=== PATIENT | female | born 1950 | race Caucasian/White ===

== ENCOUNTER → 2019-03-11 | Outpatient (CLI) | payer BC ==
--- NOTE | 2019-03-12 07:28 | MM ---
Reason for exam: follow-up at short interval from prior study. Last mammogram was performed 5 years and 6 months ago. History: Patient is postmenopausal. Family history of breast cancer in mother at age 76 and breast cancer in maternal aunt. Physical Findings: Nurse did not find any significant physical abnormalities on exam. MG 3D Diag Mammo W/Cad LT Spot compression CC, spot compression MLO, and LM view(s) were taken of the left breast. Prior study comparison: September 03, 2013, bilateral MG screening mammo w CAD. July 16, 2011, bilateral digital screening mammo w/CAD. The breast tissue is heterogeneously dense. This may lower the sensitivity of mammography. There is a left lower outer quadrant mass at middle depth that has increased in density. Ultrasound will be performed. These results were verbally communicated with the patient and result sheet given to the patient on 03/11/19. ASSESSMENT: Incomplete: need additional imaging evaluation, BI-RAD 0 RECOMMENDATION: Ultrasound of the left breast.
--- NOTE | 2019-03-12 07:29 | USB ---
Reason for exam: additional evaluation requested from abnormal screening. History: Patient is postmenopausal. Family history of breast cancer in mother at age 76 and breast cancer in maternal aunt. US Breast LT Left complete breast ultrasound includes all four quadrants, the retroareolar region and axilla. Finding demonstrates a 7 x 3 x 6mm cystic lesion at 4 o'clock, corresponds with mammographic finding. Scattered areas of dense tissue. These results were verbally communicated with the patient and result sheet given to the patient on 03/11/19. ASSESSMENT: Benign, BI-RAD 2 RECOMMENDATION: Routine screening mammogram of both breasts in 1 year.
== END | disposition home or self-care (01) ==
LOC: RADMAMWWP 13:19
PROVIDERS: ATTEND Obstetrics & Gynecology
DX: R92.8 Other abnormal and inconclusive findings on diagnostic imaging of breast (principal)
CPT/HCPCS: 77061; 77065

== ENCOUNTER → 2019-03-26 | Outpatient (CLI) | payer BC, MEDICARE ==
--- NOTE | 2019-03-26 15:29 | BD ---
EXAMINATION TYPE: Axial Bone Density DATE OF EXAM: 03/26/2019 COMPARISON: 02/21/2016 CLINICAL HISTORY: M [age] Height: 63.5 IN Weight: 127 LBS FRAX RISK QUESTIONS: Family History (Parent hip fracture): YES MOTHER History of Fracture in Adulthood: LT FOOT AGE 62 RISK FACTORS HISTORY OF: Surgery to Hip(BRISEIDA): SEPTEMBER 2015 Family History of Osteoporosis: YES MOTHER, SISTER, AND (2) BROTHERS Active: YES Postmenopausal woman: AGE 54 MEDICATIONS: Osteoporosis Medications: NOT NOW Which medication: Fosamax How Long: TOOK FOR 2 YEARS Additional Medications: CALCIUM, VIT D, GLUSOMINE SULPHATE, MAGNESIUM, SELENIUM, B COMPLEX, MULTI VIT , EXAM MEASUREMENTS: Bone mineral densitometry was performed using the [employer] System. Bone mineral density as measured about the Lumbar spine is: ----- L1-L4(G/cm2): 1.011 T Score Values are as follows: ----- L2: -1.7 ----- L3: -1.1 ----- L4: -1.2 ----- L1-L4: -1.4 Bone mineral density has: Increased 5.6% since study of: 02/21/2016 PT HAD BRISEIDA HIP REPLACEMENTS 09/2015 Bone mineral density about the L Wrist (g/cm2): 0.553 T Score values are as follows: -----Dist. R+U: -3.6 -----Prox. R+U: -1.0 -----Radius total: -2.0 Bone mineral density BASELINE IMPRESSION: Osteoporosis (T Score less than -2.5) with regards to the radius. There is increased fracture risk and therapy is usually indicated based on age. Re-Screen 1-2 years. NOTE: T-SCORE=SD OF THE YOUNG ADULT MEAN.
== END | disposition home or self-care (01) ==
LOC: RADBDWWP 12:21
PROVIDERS: ATTEND Obstetrics & Gynecology
DX: M81.0 Age-related osteoporosis without current pathological fracture (principal)
CPT/HCPCS: 77080

== ENCOUNTER → 2024-04-07 | Outpatient (CLI) | payer MEDICARE ==
--- NOTE | 2024-04-07 15:07 | MM ---
Reason for Exam: Screening (asymptomatic). Last mammogram was performed 10 year(s) and 7 month(s) ago. Patient History: Menarche at age 11. First Full-Term at age 24. Postmenopausal. Maternal aunt had breast cancer. Mother had breast cancer, age 76. Risk Values: Marilee 5 year model risk: 3.5%. NCI Lifetime model risk: 7.4%. Prior Study Comparison: 07/16/2011 Bilateral Screening Mammogram, [facility]. 09/03/2013 Bilateral Screening Mammogram, [facility]. 03/11/2019 Left Diagnostic Mammogram, [facility]. Tissue Density: The breasts are heterogeneously dense, which may obscure small masses. Findings: Analyzed By CAD. Right breast: There is no suspicious group of microcalcifications or new suspicious mass. Left breast: There is no suspicious group of microcalcifications or new suspicious mass. Benign-appearing calcifications left breast. Overall Assessment: Benign, BI-RAD 2 Management: Screening Mammogram of both breasts in [address] [facility] will attempt to contact patient to return for supplemental views and ultrasound if indicated. Patient should continue monthly self-breast exams. A clinical breast exam by your physician is recommended on an annual basis. This exam should not preclude additional follow-up of suspicious palpable abnormalities. Note on Marilee scores and lifetime risk: 1. A Marilee score greater than 3% is considered moderate risk. If this is the case, consider specialist referral to assess eligibility for a risk reducing agent. 2. If overall lifetime risk for the development of breast cancer is 20% or higher, the patient may qualify for future screening with alternating mammogram and breast MRI. [facility], , 04/07/2024 3:04 PM. Electronically signed and approved by: Jaguar Austin DO
--- NOTE | 2024-04-07 16:27 | BD ---
EXAMINATION TYPE: Axial Bone Density DATE OF EXAM: 04/07/2024 CLINICAL HISTORY: 74 years old Female. ICD-10 CODE: Z78.0 POST MENOPAUSAL , Additional History: Height: 63 in Weight: 120 lbs FRAX RISK QUESTIONS: Family History (Parent hip fracture): yes mother History of Fracture in Adulthood: lt foot fx age 50 RISK FACTORS HISTORY OF: Surgery to Hip(right/left): jayson 2015 MEDICATIONS: Osteoporosis Medications: not now Which medication: Fosamax How Lon years EXAM MEASUREMENTS: Bone mineral densitometry was performed using the [employer] System. Bone mineral density as measured about the Lumbar spine is: ----- L1-L4(G/cm2): 1.009 T Score Values are as follows: ----- L1: -2.5 ----- L2: -2.4 ----- L3: -1.2 ----- L4: -0.1 ----- L1-L4: -1.4 Z Score Values are as follows: ----- L1: -0.4 ----- L2: -0.3 ----- L3: 0.9 ----- L4: 2.0 ----- L1-L4: 0.7 Bone mineral density has: Decreased -0.2% since study of: 03/26/2019 Bone mineral density about the L Wrist (g/cm2): 0.532 T Score values are as follows: -----Dist. R+U: -3.5 -----Prox. R+U: -1.6 -----Radius total: -2.4 Z Score values are as follows: -----Dist. R+U: -1.2 -----Prox. R+U: 0.7 -----Radius total: -0.1 Bone mineral density has: Decreased -7.0% since study of: 03/26/2019 IMPRESSION: Osteopenia (T Score between -2.5 and -1). There is slightly increased risk of fracture and the patient may be considered for treatment. Re-Screen 2-5 years. NOTE: T-SCORE=SD OF THE YOUNG ADULT MEAN. [facility], Workstation: [email or web address], 04/07/2024 4:25 PM
== END | disposition home or self-care (01) ==
LOC: RADMAMWWP 13:39
PROVIDERS: ATTEND Family Medicine
DX: Z12.31 Encounter for screening mammogram for malignant neoplasm of breast (principal); R92.333 Mammographic heterogeneous density, bilateral breasts; M85.88 Other specified disorders of bone density and structure, other site; Z78.0 Asymptomatic menopausal state; Z80.3 Family history of malignant neoplasm of breast; R92.1 Mammographic calcification found on diagnostic imaging of breast
CPT/HCPCS: 77063; 77067; 77080